=== PATIENT | male | born 1960 | race Caucasian/White ===

== ENCOUNTER 2017-08-14 04:10 | Inpatient (IN) | payer BC ==
[~2017-08-14] VITALS: Ht 190.5 cm; Wt 124.8 kg
[2017-08-14 04:15] VITALS: Ht 190.5 cm; Wt 124.8 kg
[2017-08-14 05:02] LABS: BASOPHIL % 0.2 % (0-2); PLATELET COUNT 189 x10^3mcL (130-400); RED CELL DISTRIBUTION WIDTH 14.2 % (11.5-14.5)
[2017-08-14 07:21] LABS: CALCIUM 8.5 mg/dL (8.5-10.1); CARBON DIOXIDE 20.1 mmol/L (21-32); CREATININE SERUM 1.6 mg/dL (0.7-1.3)
[2017-08-14 07:23] LABS: ALBUMIN 3.2 g/dL (3.4-5.0)
[2017-08-14 07:34] LABS: BILIRUBIN TOTAL 0.56 mg/dL (0.20-1.00); TOTAL PROTEIN, SERUM 7.8 g/dL (6.4-8.2)
[2017-08-14] MEDS ORDERED: LISINOPRIL2.5 MG PO (08:27)
[2017-08-14] MEDS ORDERED: TOPROL XL25 MG PO (08:27)
[2017-08-14] MEDS ORDERED: TOPROL XL25 MG (08:27)
[2017-08-14 10:22] LABS: PHOSPHOROUS 3.6 mg/dL (2.5-4.9)
[2017-08-14 10:33] LABS: CHOLESTEROL/HDL RATIO 5.3
[2017-08-14 10:39] VITALS: BP 162/95
[2017-08-14 10:51] LABS: FREE T4 1.05 ng/dL (0.76-1.46); FREE THYROXINE INDEX 2.6 ug/dL (1.4-4.5); T4(THYROXINE) 7.4 ug/dL (4.7-13.3)
[2017-08-14 11:04] LABS: T3 TOTAL 1.21 ng/mL
[2017-08-14 17:24] VITALS: BP 150/95
[2017-08-14 21:48] VITALS: BP 137/94
[2017-08-14 22:16] LABS: UA SPECIFIC GRAVITY <=1.005 (1.005-1.035); microscopic required? YES; urine erythrocyte TRACE (NEGATIVE)
[2017-08-14 22:31] LABS: AMPHETAMINE QUAL UR NONE DETECTED (NEG <=1000)
[2017-08-15 04:58] LABS: CALCIUM 8.3 mg/dL (8.5-10.1); CARBON DIOXIDE 22.1 mmol/L (21-32); CREATININE SERUM 1.6 mg/dL (0.7-1.3); POTASSIUM SERUM 4.1 mmol/L (3.5-5.1)
[2017-08-15 05:08] LABS: BASOPHIL % 0.3 % (0-2); PLATELET COUNT 188 x10^3mcL (130-400); RED CELL DISTRIBUTION WIDTH 14.1 % (11.5-14.5)
[2017-08-15 06:24] VITALS: BP 137/98
[2017-08-15 10:15] VITALS: BP 137/94
[2017-08-15 13:44] VITALS: BP 144/101
[2017-08-15] MEDS ORDERED: XARELTO10 M1 PO ×2 (14:48→14:50)
[2017-08-15] MEDS ORDERED: LEVAQUIN750 MG PO (15:05)
[2017-08-15] MEDS ORDERED: LAC PO (15:05)
[2017-08-15 16:21] VITALS: BP 137/98
[2017-08-15 17:31] VITALS: BP 137/98
== END 2017-08-15 18:11 | disposition home or self-care (01) | DRG 175 ==
LOC: ED 04:10 → DU 09:17
PROVIDERS: Emergency Medicine; Family Medicine
DX: I26.99 Other pulmonary embolism without acute cor pulmonale (principal); N17.0 Acute kidney failure with tubular necrosis; J18.9 Pneumonia, unspecified organism; E44.0 Moderate protein-calorie malnutrition; D68.59 Other primary thrombophilia; I10 Essential (primary) hypertension; E78.5 Hyperlipidemia, unspecified; E66.01 Morbid (severe) obesity due to excess calories; R73.03 Prediabetes; E83.51 Hypocalcemia; Z68.32 Body mass index [BMI] 32.0-32.9, adult; Z83.3 Family history of diabetes mellitus; Z80.42 Family history of malignant neoplasm of prostate
CPT/HCPCS: 83880; 84439; J0696; J1644; J1885; J1956; J7030; Q0092; Q9967